=== PATIENT | female | born 1965 | race Caucasian/White ===

== ENCOUNTER 2018-08-11 15:12 | Outpatient (CLI) | payer OTHER ==
--- NOTE | 2018-08-20 09:09 | Mammography Report ---
Reason: ANNUAL SCREENING Procedure Date: 08/11/2018 Accession Number: [id number] / [id number] Procedure: JUANITA - Screening Mammo Dig Bilat CPT Code: FULL RESULT: EXAM: Screening Mammo Dig Bilat DATE: 08/11/2018 4:18 PM CLINICAL HISTORY: Screening encounter. Family history of breast cancer in a sister at the age of 49. TECHNIQUE: Bilateral CC and MLO views were obtained. COMPARISON: 06/19/2017 through 04/29/2012. FINDINGS: The breasts demonstrate scattered fibroglandular densities bilaterally. No suspicious masses, clustered microcalcifications, or regions of architectural distortion are identified. IMPRESSION: Negative examination RECOMMENDATION: Routine annual screening unless otherwise clinically indicated. BIRADS CATEGORY 1: Negative STANDARD QUALIFYING STATEMENTS: 1. This examination was not reviewed with the aid of Computer-Aided Detection (CAD). 2. A negative or benign imaging report should not preclude biopsy if clinically suspicious findings are present. 3. Dense breasts may obscure an underlying neoplasm. 4. This examination was reviewed without the aid of 3D breast imaging (tomosynthesis).
== END 2018-08-11 15:13 | disposition home or self-care (01) ==
LOC: DI 15:12
DX: Z12.31 Encounter for screening mammogram for malignant neoplasm of breast (principal); Z80.3 Family history of malignant neoplasm of breast
CPT/HCPCS: 77067

== ENCOUNTER 2019-05-04 16:50 | Outpatient (CLI) | payer OTHER ==
--- NOTE | 2019-05-04 19:07 | Ultrasound Report ---
Reason: CONTUSION OF RT THIGH Procedure Date: 05/04/2019 Accession Number: [id number] / [id number] Procedure: US - Duplex Ext Veins Right CPT Code: FULL RESULT: EXAM: RIGHT LOWER EXTREMITY VENOUS ULTRASOUND EXAM DATE: 05/04/2019 05:08 PM. CLINICAL HISTORY: CONTUSION OF RT THIGH. COMPARISON: None. TECHNIQUE: Real-time sonographic vascular imaging was performed by the sea kayaking guide through the lower extremity utilizing both color-flow and Doppler spectral analysis. Multiple collections representative static images were saved for review. FINDINGS: Common Femoral Vein (CFV): Normal. CFV-GSV Junction: Normal. Profunda Femoral Vein (PFV): Normal. Femoral Vein (FV) Prox: Normal. Femoral Vein (FV) Mid: Normal. Femoral Vein (FV) Dist: Normal. Popliteal Vein: Normal. Posterior Tibial Veins: Not visualized Peroneal Veins: Not visualized Contralateral Side CFV: Normal. Other: 5.7 x 3.2 cm complex fluid collection in the right lateral thigh in the region of a visible blister. IMPRESSION: No evidence for deep venous thrombosis in the visualized right lower extremity. Limited visualization of the calf veins. [facility] The call report notification system was initiated by Dr. Christian Mccord at 06:56 PM on 05/04/2019. The above call report findings were discussed with Dr. Gant by Dr. Christian Mccord at 07:05 PM on 05/04/2019.
== END 2019-05-04 16:51 | disposition home or self-care (01) ==
LOC: DI 16:50
PROVIDERS: ATTEND Nurse Practitioner Family
DX: S70.11XD Contusion of right thigh, subsequent encounter (principal)

== ENCOUNTER 2019-08-31 15:57 | Outpatient (CLI) | payer OTHER ==
--- NOTE | 2019-09-01 08:03 | DEXA Report ---
Reason: FRACTURE OF COCCYX, ROUTINE HEALING Procedure Date: 08/31/2019 Accession Number: [id number] / [id number] Procedure: DEX - Dexa Spine and/or Hip CPT Code: Final Report FULL RESULT: EXAM: Dexa Spine and/or Hip DATE: 08/31/2019 4:14 PM CLINICAL HISTORY: FRACTURE OF COCCYX, ROUTINE HEALING TECHNIQUE: Dual energy x-ray absorptiometry (DXA) was performed on a [employer] System. Regions measured are the AP Spine, femoral neck, and if needed forearm. COMPARISON: 07/11/2016. In accordance with the International Society for Clinical Densitometry (ISCD) guidelines, data from previous exams may be reanalyzed using current recommendations and techniques. This is done to allow a more accurate basis for comparison with the current study. FINDINGS: The data for the lumbar spine is as follows: BMD (g/cm/cm) T-SCORE Z-SCORE REGION L1 1.447 2.6 3.3 L2 1.520 2.7 3.3 L3 1.515 2.6 3.2 L4 1.534 2.8 3.4 TOTAL 1.507 2.7 3.3 NOTE: All evaluable vertebrae are used for classification The data for the hip is as follows: BMD (g/cm/cm) T-SCORE Z-SCORE REGION Neck 1.043 0.0 0.9 TOTAL 1.073 0.5 1.0 NOTE: The femoral neck or total proximal femur, whichever is lowest, is used for classification. DXA RESULTS SUMMARY: Spine SCAN DATE AGE BMD CHANGE VS CHANGE VS PREVIOUS PREVIOUS % 08/31/2019 54.0 1.507 -0.020 -1.3 07/11/2016 [age] 1.527 * Denotes significant change at the 95% confidence level. Denotes dissimilar scan types or analysis methods. DXA RESULTS SUMMARY: Hip SCAN DATE AGE BMD CHANGE VS CHANGE VS PREVIOUS PREVIOUS % 08[age]31/2019 54.0 1.073 0.029 2.8 07/11/2016 50.9 1.044 * Denotes significant change at the 95% confidence level. Denotes dissimilar scan types or analysis methods. IMPRESSION: THE WHO CLASSIFICATION BASED ON THE INTERNATIONAL REFERENCE STANDARD IS NORMAL. THE FRACTURE RISK IS NOT INCREASED. RECOMMENDATION: Patients with diagnosis of osteoporosis or osteopenia should have regular bone mineral density assessment. For those eligible for Medicare, routine testing is allowed once every 2 years. Testing frequency can be increased for patients who have rapidly progressing disease or for those who are receiving medical therapy to restore bone mass. COMMENT: World Health Organization (WHO) definitions for osteoporosis and osteopenia: NORMAL BMD: T-score at -1.0 or higher, fracture risk is low OSTEOPENIA BMD: T-score between -1.0 and -2.5, fracture risk is increased. OSTEOPOROSIS BMD: T-score at -2.5 or lower, fracture risk is high. National Osteoporosis Foundation recommends: 1. Obtain adequate dietary calcium (at least 1200 mg per day) and vitamin D (400-800 international units per day). 2. Participate, as appropriate, in regular weightbearing and muscle-strengthening exercise. 3. Avoid tobacco use and reduce alcohol and caffeine intake. 4. For more detailed information see the website at www.NOF.org.
== END 2019-08-31 15:58 | disposition home or self-care (01) ==
LOC: DI 15:57
PROVIDERS: ATTEND Physician Assistant
DX: S32.2XXD Fracture of coccyx, subsequent encounter for fracture with routine healing (principal)
CPT/HCPCS: 77080

== ENCOUNTER 2020-08-24 11:10 | Outpatient (CLI) | payer OTHER ==
[2020-08-24 15:43] LABS: ALBUMIN 4.2 g/dL (3.2-5.5); ALBUMIN/GLOBULIN RATIO 1.3 (1.0-2.2); ALKALINE PHOSPHATASE 47 IU/L (42-121); ALT ALANINE AMINOTRANSFERASE 18 IU/L (10-60); AST ASPARTATE AMINOTRANSFERASE 20 IU/L (10-42); BILIRUBIN,TOTAL 0.7 mg/dL (0.2-1.0); BUN - BLOOD UREA NITROGEN 17 mg/dL (6-20); CALCIUM 9.2 mg/dL (8.5-10.3); CARBON DIOXIDE - CO2 27 mmol/L (21-32); CHLORIDE 107 mmol/L (101-111); CHOL/HDL RATIO 3.2 (<4.4); CHOLESTEROL 233 mg/dL; CREATININE 0.8 mg/dL (0.4-1.0); GLUCOSE 106 mg/dL (70-100); HDL CHOLESTEROL 72 mg/dL; LDL CHOLESTEROL,CALCULATED 148 mg/dL; LDL/HDL RATIO 2.1 (<4.4); SODIUM 140 mmol/L (135-145); TOTAL PROTEIN 7.4 g/dL (6.7-8.2); VLDL CHOLESTEROL 13 mg/dL
[2020-08-24 20:28] LABS: HEMOGLOBIN A1c% 5.6 % (4.27-6.07)
== END 2020-08-24 11:11 | disposition home or self-care (01) ==
LOC: LAB.S 11:10
PROVIDERS: ATTEND Registered Nurse
DX: E78.5 Hyperlipidemia, unspecified (principal); Z83.49 Family history of other endocrine, nutritional and metabolic diseases; R73.03 Prediabetes
CPT/HCPCS: 36415; 80053; 80061; 83036; 83721; 84443

== ENCOUNTER 2020-09-07 14:50 | Outpatient (CLI) | payer OTHER ==
--- NOTE | 2020-09-08 05:38 | Mammography Report ---
BILATERAL DIGITAL SCREENING MAMMOGRAM 3D/2D: 09/07/2020 CLINICAL: Family history of breast cancer. Routine screening. Comparison is made to exams dated: 08/11/2018 mammogram - [facility], 06/19/2017 ma mmogram, 07/11/2016 mammogram, 04/04/2015 mammogram, 04/29/2013 mammogram, and 04/29/2012 mammogram - [facility]. There are scattered fibroglandular elements in both breasts. There is a new 0.9 cm x 0.8 cm x 1 cm oval equal density mass with a circumscribed margin in the left breast at 3 o'clock anterior depth. Finding is seen only on tomography. No other significant masses, calcifications, or other findings are seen in either breast. IMPRESSION: INCOMPLETE: NEEDS ADDITIONAL IMAGING EVALUATION The new 0.9 cm x 0.8 cm x 1 cm oval equal density mass in the left breast resembles a cyst and is ind eterminate. Additional views with possible ultrasound are recommended. This exam was interpreted at Station ID: [id number]. NOTE: For mammograms, a report in lay terms will be sent to the patient. Approximately 15% of breast malignancies will not be visualized mammographically. In the management of a palpable breast mass, a negative mammogram must not discourage biopsy of a clinically suspicious lesion. Electronically Signed By: Anjel Howard acr/:09/07/2020 16:45:56 ACR BI-RADS Category 0: Incomplete 3340F PARENCHYMAL PATTERN: (A) - The breast(s) demonstrate(s) scattered fibroglandular densities. BI-RADS CATEGORY: (0) - 0 Mammo and [place] [id number] Immediate follow-up LATERALITY: (B)
== END 2020-09-07 14:51 | disposition home or self-care (01) ==
LOC: DI.N 14:50
DX: Z12.31 Encounter for screening mammogram for malignant neoplasm of breast (principal); R92.8 Other abnormal and inconclusive findings on diagnostic imaging of breast; Z80.3 Family history of malignant neoplasm of breast
CPT/HCPCS: 77067